=== PATIENT | female | born 1955 | race Two or more races ===

== ENCOUNTER → 2017-05-22 | Outpatient (CLI) | payer BC ==
--- NOTE | 2017-05-22 17:36 | CONS ---
Date/Time of Note Date/Time of Note DATE: 05/22/17 TIME: 17:16 Assessment/Plan Assessment/Plan Problems: (1) Breast CA Status: Resolved Comment: Currently undergoing chemotherapy but states that breast cancer is in remission. (2) Radicular pain of lumbosacral region (3) Radicular pain of right lower extremity Status: Acute Comment: * Low suspicion of pain exacerbation in etiology at the right hip. High suspicion of lumbar spine and radiating down the right lower extremity especially given recent bone metastasis to the L4 and L5 region. * Oncologist, Dr. Schumacher, was called in regards to pain control and recommends ibuprofen 800 mg up to 3 times a day. * Supportive measures such as daily stretching and range of motion encouraged to the lumbar spine. * Patient does confirm MRI to the lumbar spine that was performed in October 2016 but does not present with disc of imaging or report. Patient was advised to follow-up in 2 weeks to see if supportive measures have been successful in regards to anti-inflammatories, stretching and decreased aggravation with certain movements of the lumbar spine as it does seem to be radiculopathy in nature. Patient will present with MRI report and imaging for review with Dr. Leon. * Follow-up [address] Leon for repeat evaluation. Likely patient may need referral to pain management for treatment of radicular symptoms ( Possible epidural injection versus alternative pain management options) or spine surgeon for further evaluation for what appears to be lumbar spine pain with likely nerve injury. * Prescription for ibuprofen 800 mg 1 tab p.o. 3 times daily #90 tablets with one refill provided for patient today. Consultation Date/Type/Reason Admit Date/Time Date of Consultation: May 22, 2017 Type of Consultation: New patient Reason for Consultation Right hip versus low back pain Hx of Present Illness 62-year-old female presents today for evaluation in regards to right hip versus low back pain that is off and on for the past couple of months. In October 2016 she was diagnosed with breast cancer which metastasized to the L4 and L5 vertebrae. Patient has had 10 rounds of radiation and is currently undergoing chemotherapy. 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 Schumacher. Patient experienced significant weakness after radiation therapy. She states that since initial significant weakness, her strength to the bilateral lower extremities has improved. Initially, she was unable to walk, flex or abduct the hips while lying down or performing any significant activity to the bilateral lower extremities. Now patient is walking in his gradually building strength. Patient was walking normally yesterday without any issue and when she woke up today she had significant pain to the low back radiating down the legs. Radicular symptoms is isolated to the right lower extremity and at times it can radiate to the posterior mid thigh while other times he could radiate to the medial knee or down to the foot. Currently her biggest complaint is pain at the buttocks which is more sharp in nature traveling down the posterior thigh and stopping around the knee. She is having significant limping and is now using a single-point cane. Patient has been taking Aleve which provides little help. 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 When asked, she states that pain is primarily to the buttock region and lateral/greater trochanteric region.She denies any groin pain.She denies any past history of hip injury, surgeries, injection or necessity for physical therapy to the right hip for any reason. Constitutional: no complaints Eyes: no complaints ENT: no complaints Respiratory: no complaints Cardiovascular: no complaints Gastrointestinal: no complaints Genitourinary: no complaints Musculoskeletal: back pain Skin: no complaints Neurologic: no complaints Endocrine: no complaints Lymphatic: no complaints Psychological: no complaints Immunologic: no complaints Past Medical History Medical History: cancer (Breast cancer) Past Surgical History Breast augmentation Hysterectomy Breast cancer surgery Social History Alcohol Use: none Smoking Status: Never smoker Drug Use: none Other Social History Penicillin allergy Exam/Review of Systems Vital Signs Vitals Blood pressure is 140/85, temperature is 98.7, pulse is 112, respiratory rate is 12, height is 5 foot 7 inches, weight is 131 pounds Exam Low back: Gait is abnormal and antalgic. Using single-point cane for assisted ambulation.No specific tenderness to palpation to the lumbar spine. Mild discomfort to the right side SI joint. Mildly positive Kathleen's test. Negative straight leg raise. Negative Kernig's sign. Normal sensory examination throughout the bilateral lower extremities.With activity patient has complaints to the midline right buttock region/right SI joint region traveling down the posterior thigh depending on activity. Weakness with abduction but normal strength with all other movements of the hip. Right hip: Patient has full range of motion with flexion, extension, internal and external rotation. Normal abduction and adduction. 5/5 strength with flexion, extension, internal and external rotation as well as adduction. 4-/5 strength with abduction.No pain with range of motion especially with internal and external rotation. Normal examination of the right hip. Constitutional: alert, oriented, well developed Psych: no complaints Head: atraumatic, normocephalic Results X-ray to the right hip performed on 05/22/2017 showing mild to moderate decreased joint space to the superior pole of the acetabulum/hip joint. Mild osteoarthritic changes. No signs of any avascular necrosis or pathology to the right hip. AMADOR RICHMOND PA-C May 22, 2017 17:26
--- NOTE | 2017-05-22 17:51 | RADRPT ---
PROCEDURE: XR Right hip and pelvis. CLINICAL INDICATION: Right hip pain. Pelvic pain. TECHNIQUE: Two views. Frontal pelvis and lateral right hip. COMPARISON: No prior studies are available for comparison. FINDINGS: There is no fracture or dislocation. The soft tissues are normal. There are mild degenerative changes of both hips with small osteophytes noted. There is no joint space narrowing. There is no lytic or blastic lesion. The upper pelvis is not completely included on the image. IMPRESSION: 1. Mild degenerative changes of both hips. 2. Otherwise unremarkable study. RPTAT: QQ .Aram Topete MD, MD Date Time Electronically viewed and signed by .Aram Topete MD, MD on 05/22/2017 17:50 .R/
== END | disposition home or self-care (01) ==
LOC: HKI 15:27
DX: M25.551 Pain in right hip (principal); M54.5 Low back pain; C50.919 Malignant neoplasm of unspecified site of unspecified female breast
CPT/HCPCS: 73502; G0463